=== PATIENT | male | born 1990 | race African-American/Black ===

== ENCOUNTER 2020-05-15 21:30 | Emergency (ER) | payer OTHER ==
[~2020-05-15] VITALS: Ht 170.2 cm; Wt 70.3 kg
[2020-05-16 00:01] VITALS: BP 132/76
== END 2020-05-16 00:01 | disposition home or self-care (01) ==
LOC: ER 21:30
DX: R51.9 Headache, unspecified (principal); R50.9 Fever, unspecified; R05 Cough; Z20.828 Contact with and (suspected) exposure to other viral communicable diseases